=== PATIENT | male | born 1970 | race Hispanic/Latino ===

== ENCOUNTER 2024-11-14 23:47 | Emergency (ER) | payer SELFPAY ==
[2024-11-14 23:48] VITALS: BMI 30.3
[2024-11-15 00:03] VITALS: BP 153/100
[2024-11-15 00:52] VITALS: BP 150/95
[2024-11-15 01:23] LABS: Hematocrit 41.9 % (39.0-52.0); Hemoglobin 13.9 g/dL (13.0-18.0); Mean Corp Hgb Conc. 33.2 g/dL (33.0-37.0); Mean Corpuscular Volume 83.8 fL (80.0-94.0); Nucleated Red Blood Cells % 0 % (-); Platelet Count 246 10^3/uL (130-400); Red Cell Dist. Width 13.2 % (11.5-14.5)
[2024-11-15 01:41] LABS: Blood Urea Nitrogen 14 mg/dl (9-20); Calcium 9.2 mg/dl (8.4-10.2); Carbon Dioxide 19 mmol/L (22-30); Chloride 109 mmol/L (98-107); Estimated Creatinine Clearance > 125 ml/min; Glucose 127 mg/dl (70-99); Sodium 136 mmol/L (135-145); eGFR > 60.00
[2024-11-15 01:53] LABS: Troponin I 0.029 ng/ml
[2024-11-15 03:00] VITALS: BP 124/74
[2024-11-15 03:56] LABS: Troponin I < 0.012 ng/ml
[2024-11-15 04:00] VITALS: BP 131/81
--- NOTE | 2024-11-15 04:04 | ED.GENMED ---
History of Present Illness
General
Chief Complaint: Chest Pain
Time Seen by Provider: 11/15/24 00:56
History of Present Illness
History of Present Illness:
Note:
CHIEF COMPLAINT(S)
Persistent pain originating from the right shoulder and right pectoralis muscle, migrating to the sternum, exacerbated by movements like standing and getting up twisting of his torso.
HISTORY OF PRESENT ILLNESS
The patient is a 54-year-old male who has been experiencing pain for approximately two and a half weeks. The pain initially stemmed from the right chest with radiation into his sternum. Patient also suffering from foot pain perceived as plantar
fasciitis, and has since progressed, now gravitating toward the sternum. The pain is described as 'grudging' and becomes more pronounced when the patient gets up from a resting position. He works as a selby, which requires prolonged standing,
potentially contributing to strain-induced pain. There was no reported blunt force injury or falls. The patient reported transient relief with the consumption of dionna cynthia and noted that the pain is predominantly experienced during movement, not at
rest. He denies any personal history of cardiac issues but reported a first cousin who had a heart attack.
SOCIAL HISTORY
The patient admits to occasional alcohol use.
PHYSICAL EXAM
General: Alert, no acute distress.
Skin: Warm, dry.
Head: Normocephalic, atraumatic.
Neck: Supple, trachea midline.
Eyes, Ears, Nose, Mouth, and Throat: Oral mucosa moist.
Cardiovascular: Normal peripheral perfusion, no edema.
Respiratory: Respirations are non-labored.
Gastrointestinal: Abdomen nondistended.
Back: Normal range of motion, normal alignment.
Musculoskeletal: Normal range of motion, normal strength. Reproducible pain to palpation of the right pectoralis muscle.
Neurological: Alert and oriented to person, place, time, and situation, no focal neurological deficit observed.
Psychiatric: Cooperative, appropriate mood & affect.
PROBLEM LIST
Acute pain of unknown origin
PLAN
1. Conduct a cardiac workup, including blood work and electrocardiogram (EKG).
2. Complete a physical examination and obtain imaging of the chest and possibly neck area to rule out non-cardiac causes of pain.
3. Referral to a clinic with a sliding scale fee or a residency program for more affordable healthcare options, given the patients possible financial constraints and that he usually seeks care in the [facility].
DIFFERENTIAL DIAGNOSIS
The Differential Diagnosis includes, in no particular order and is not limited to:
1. Musculoskeletal pain (possibly related to occupation)
2. Costochondritis
3. Gastroesophageal reflux disease (GERD)
4. Myocardial infarction
5. Angina
6. Pulmonary embolism
7. Pleuritis
8. Esophageal spasm
9. Anxiety-related chest pain
10. Aortic dissection
EKG
My independent EKG interpretation is:
- Time of EK a.m.
- Rhythm: Normal
- Heart Rate: 78 bpm
- Intervals: Normal
- [place]: Normal
- Abnormalities: No evidence of ischemia present
- Comparison: No previous EKG available for comparison
Disposition:
SUMMARY OF ENCOUNTER
The patient, a 54-year-old male, presented to the emergency department with a primary complaint of right-sided pectoral pain persisting for over a week. The pain is notably worse with movement. Initial evaluation included a troponin test, which
showed a result on the higher end of the normal range. A second troponin test was undetectable and returned negative, suggesting no acute cardiac event. The diagnosis of musculoskeletal chest wall pain was made, and the patient showed improvement in
symptoms during the visit.
DISPOSITION
Discharge; the patient will be discharged with close follow-up.
ASSESSMENT
Musculoskeletal chest wall pain.
PLAN
Discharge with instructions for close follow-up care to monitor potential changes or worsening of the condition, and to ensure continued improvement.
INDEPENDENT REVIEW OF LABS AND INTERPRETATION OF TESTS
- My independent review of the first troponin level is it was on the higher end of the normal range.
- My independent review of the second troponin test indicates it was undetectable and negative.
PATIENT EDUCATION AND COUNSELING
The patient was informed about the diagnosis of musculoskeletal chest wall pain. He was educated regarding the importance of monitoring pain and symptoms. The patient was advised on proper body mechanics to potentially alleviate strain-related pain.
FOLLOW-UP INSTRUCTIONS
The patient was instructed to follow up closely with his primary care provider to ensure continued monitoring of his condition.
MEDICATION RECONCILIATION
No medications were prescribed or administered during this visit.
MEDICAL DECISION MAKING
- Number and Complexity of Problems Addressed: Chronic conditions affecting care included musculoskeletal chest wall pain, and consideration of other causes for differential diagnosis such as myocardial infarction, angina, and pulmonary embolism.
- Data:
Category 1: My independent interpretation of the troponin tests confirms the results showed no evidence of acute cardiac events.
- Risk: Consideration of Admission/Observation: Escalation of care including admission/observation was considered given the complexity and risk of the patients presenting complaint, exam findings, and/or their underlying comorbidities. However,
ultimately I feel the patient is safe for outpatient management with close follow up. Reasoning: Work-up reassuring, does not reveal any acute life/organ threatening processes, patients symptoms well controlled upon reevaluation, reexamination is
reassuring, vitals are stable, patient agreeable with discharge, reliable for follow-up.
DIAGNOSIS
- Musculoskeletal chest wall pain (ICD-10: M79.1).
Phy Exam
Physical Exam
Physical Exam:
.
Scores
Heart Score for Chest Pain Patients
STEMI patient?: No
History: Slightly or Non-Suspicious
ECG: Normal
Age: >45 - <65 years
Risk Factors: 1 or 2 Risk Factors
Troponin: </= Normal Limit
Heart Score for Chest Pain Patients: 2
Heart Score Risk: 2.5% MACE over next 6 weeks
Course
Orders/Labs/Results
Orders:
Orders
11/15/24 00:02
Electrocardiogram (*1) Urgent
Reason for Study: Chest Pain
EKG- Treatment ONCE
11/15/24 01:13
Basic Metabolic Panel Urgent
Complete Blood Count/With Diff Urgent
Troponin I Urgent
11/15/24 02:58
Electrocardiogram (*1) Urgent
Reason for Study: Chest Pain
EKG- Treatment ONCE
11/15/24 03:13
Troponin I Urgent
11/15/24 04:05
CR Chest - 2 Views Urgent
Comment:
Reason For Exam: chest wall pain
Abnormal Lab Results
11/15/24
01:13
MPV 10.5 H fL
(7.4-10.4)
Absolute Neuts (auto) 6.9 H 10^3/uL
(1.4-6.5)
Absolute Monos (auto) 0.7 H 10^3/uL
(0.1-0.6)
Lymphocytes % 15.2 L %
(20.5-51.1)
Chloride 109 H mmol/L
(98-107)
Carbon Dioxide 19 L mmol/L
(22-30)
Glucose 127 H mg/dl
(70-99)
11/15/24 01:13
11/15/24 01:13
Vital Signs
Initial and Last Documented VS:
Initial Vital Signs
Temp Pulse Resp BP Pulse Ox
99.7 F 78 16 153/100 99
11/15/24 00:03 11/15/24 00:03 11/15/24 00:03 11/15/24 00:03 11/15/24 00:03
Last Documented Vital Signs
Temp Pulse Resp BP Pulse Ox
99.7 F 79 17 131/81 97
11/15/24 00:03 11/15/24 04:00 11/15/24 04:00 11/15/24 04:00 11/15/24 04:05
*Pulse Oximetry
SaO2: 97
Oxygen Mode of Delivery: Room air
Patient hypoxic: no
*Critical Care Note
Total Time (30-74mins, 75-104mins- exclusive of procedures): Not Applicable
ED Attending Note
-
Portions of this chart may have been created with voice recognition software.� Occasional wrong word or��sound alike� substitutions may have occurred due to the inherent limitations of voice recognition software.
Discharge Plan
Departure
Patient Disposition: Home (Routine Discharge)
Date of Disposition: 11/15/24
Time of Disposition: 04:34
Patient with high blood pressure during this ER visit?: Yes
Condition: Good
Discharge Problem:
Musculoskeletal chest pain
Instructions: Chest Pain PCP Follow Up, BLOOD PRESSURE
Prescriptions:
New
diclofenac sodium 75 mg tablet,delayed release (DR/EC)
75 mg PO BID PRN (Reason: pain) Qty: 10 0RF
Referrals:
[facility] [Provider Group]
[facility] [Outside]
NONE,* [Family Provider, Internal Medicine]
Activity Restrictions/Additional Instructions:
Thank You for choosing [facility].
It was a pleasure meeting you and taking part in your care. We hope for your continued healing and wellness.
Please read discharge instructions in their entirety. However, they are for general education and may not describe your exact diagnosis at discharge. Information on your ER visit and medical conditions were discussed with you along with appropriate
follow up information...
If indicated, please take your medications as instructed and indicated on discharge paperwork.
Please schedule a follow up appointment as directed. Call to schedule an appointment
Please return to the emergency department with ANY change in, persisting, or worsening of symptoms. If any of your symptoms do not improve, or persist, or become more severe within 6-12 hours, please return to the emergency department for further
care.
Please return to the emergency department if you develop a headache, neck pain/stiffness, fever greater than 100.4F, chest pain, shortness of breath, persistent nausea, vomiting, slurred speech, difficulty walking, numbness/tingling, weakness, signs
of infection or any other symptoms that are worrisome to you.
If you have any questions or concerns please do not hesitate to call the Hospital at or E-mail me directly at [email or web address]
Interventions
Interventions:
*Risk Screen - Suicide Last Done: 11/15/24 00:06
*General Assessment Last Done: 11/15/24 01:25
*Neglect/Abuse Screening Last Done: 11/15/24 00:03
*ED- Fall Risk Assessment Last Done: 11/15/24 01:22
*ED COVID-19 Vaccine History Last Done: 11/15/24 01:22
*Nursing Disposition Last Done: 11/15/24 04:47
ED- Cardiac Assessment Last Done: 11/15/24 01:21
ED-Peripheral Vascular Assessment Last Done: 11/15/24 01:21
ED-Skin Assessment Last Done: 11/15/24 01:21
Discharge Date and Time
Discharge Date/Time: 11/15/24 04:47
Print Language: PERSIAN
== END 2024-11-15 04:47 | disposition home or self-care (01) ==
LOC: EMR 23:47
PROVIDERS: EMERGENCY PHYSICIAN Student in an Organized Health Care Education/Training Program
DX: R07.89 Other chest pain (principal)
CPT/HCPCS: 99283; 71046; 80048; 84484; 85025; 93005